=== PATIENT | female | born 1975 | race African-American/Black ===

== ENCOUNTER 2025-01-22 19:13 | Inpatient (IN) | payer OTHER ==
[2025-01-22 20:04] VITALS: BMI 20.9
[2025-01-22] MEDS ORDERED: ONDANSETRON *ODT* 4 MG TABLET SL PRN (20:44)
[2025-01-22] MEDS ORDERED: BENZONATATE 200 MG CAPSULE PO PRN (20:44)
[2025-01-22] MEDS ORDERED: MAGNESIUM HYDROX 2400MG/30ML ORAL SUSPENSION 30 ML CUP PO PRN (20:44)
[2025-01-22] MEDS ORDERED: guaiFENesin 600 MG TABLET.ER (FP) PO PRN (20:44)
[2025-01-22] MEDS ORDERED: BENZOCAINE/MENTHOL (CHLORASEPTIC ) LOZENGE MM PRN (20:44)
[2025-01-22] MEDS ORDERED: BISMUTH SUBSALICYLATE 524 MG/30 ML PO PRN (20:44)
[2025-01-22] MEDS ORDERED: NICOTINE POLACRILEX 2 MG LOZENGE BC PRN (20:44)
[2025-01-22] MEDS ORDERED: POLYETHYLENE GLYCOL (HEALTHYLAX) 3350 17 GM PACKET PO PRN (20:44)
[2025-01-22] MEDS ORDERED: MAG HYDROX/AL HYDROX/SIMETH 30 ML UNIT-DOSE CUP PO PRN (20:44)
[2025-01-22] MEDS ORDERED: hydrOXYzine PAMOATE 25 MG CAPSULE (FP) PO PRN (20:44)
[2025-01-22] MEDS ORDERED: NICOTINE POLACRILEX 2 MG GUM BUC PRN (20:44)
[2025-01-22] MEDS ORDERED: LOPERAMIDE HCL 2 MG CAPSULE PO PRN (20:44)
[2025-01-22] MEDS ORDERED: DICYCLOMINE HCL 10 MG CAPSULE PO PRN (20:44)
[2025-01-22] MEDS ORDERED: NALOXONE (NARCAN) HCL 4 MG/0.1 ML SPRAY NS PRN (20:44)
[2025-01-22] MEDS ORDERED: VITAMINS A AND D TOPICAL OINTMENT TP PRN (20:54)
[2025-01-22] MEDS ORDERED: levETIRAcetam 500 MG TABLET (FP) PO ONE (22:11)
[2025-01-22] MEDS ORDERED: MELATONIN 5 MG TABLETS ONE (22:11)
[2025-01-22] MEDS ORDERED: hydrOXYzine PAMOATE 25 MG CAPSULE (FP) PO ONE (22:11)
[2025-01-22] MEDS ORDERED: IBUPROFEN 400 MG TABLET (FP) PO ONE (22:13)
[2025-01-22] MEDS: IBUPROFEN 400 MG TABLET (FP) PO PRN (22:18)
[2025-01-22] MEDS: THIAMINE 100 MG TABLET PO SCH (23:21)
[2025-01-22] MEDS: levETIRAcetam 500 MG TABLET (FP) PO SCH (23:21)
[2025-01-22] MEDS: MELATONIN 5 MG TABLETS PO SCH (23:21)
[2025-01-23] MEDS: PRENATAL VITAMINS W/ FOLIC ACID TABLET (FP) PO SCH (10:28)
[2025-01-23] MEDS: METHOCARBAMOL 500 MG TABLET PO PRN (10:28)
[2025-01-23 12:32] LABS: MCHC 33.7 g/dl (32.2-35.5); MEAN CELL VOLUME 85.2 fl (79.4-94.8); MEAN PLT VOLUME 10.0 fl (9.4-12.3); RDW 16.9 % (12.2-17.1)
[2025-01-23 12:40] LABS: GLUCOSE,RANDOM 85 mg/dL (74-106); TOT PROT 5.8 g/dl (6.4-8.2)
[2025-01-23 12:41] LABS: CO2 30 mmol/L (21-32)
[2025-01-23 12:43] LABS: ALK PHOS 99 U/L (40-150)
[2025-01-23 12:46] LABS: CREATININE 0.55 mg/dL (0.55-1.3); SGOT/AST 25 U/L (5-34); SGPT/ALT 8 U/L (0-55)
[2025-01-23] MEDS: IBUPROFEN 600 MG TABLET (FP) PO PRN (13:04)
[2025-01-23] MEDS: POTASSIUM CHLORIDE ORAL LIQUID 20 MEQ/15 ML PO ONE ×2 (13:24→19:02)
[2025-01-23] MEDS: diphenhydrAMINE HCL 25 MG CAPSULE (FP) PO ONE (13:53)
[2025-01-23] MEDS: TRIAMCINOLONE ACET 0.5% OINT 15 GM TUBE TP SCH (22:47)
[2025-01-24] MEDS: predniSONE 20 MG TABLET (UD) PO SCH (12:16)
[2025-01-24] MEDS: diphenhydrAMINE HCL 25 MG CAPSULE (FP) PO ONE (12:17)
[2025-01-24] MEDS: SELENIUM SULFIDE 2.25% 180 ML SHAMPOO TP SCH (13:20)
[2025-01-24] MEDS ORDERED: diphenhydrAMINE HCL 25 MG CAPSULE (FP) PO SCH ×2 (22:00)
[2025-01-24] MEDS: diphenhydrAMINE HCL 25 MG CAPSULE (FP) PO PRN (22:31)
[2025-01-24] MEDS: ACETAMINOPHEN 325 MG TABLET (FP) PO PRN (22:54)
[2025-01-25] MEDS ORDERED: diphenhydrAMINE HCL 25 MG CAPSULE (FP) PO PRN (18:44)
[2025-01-25] MEDS: SUVOREXANT 10 MG TABLET PO PRN (22:26)
[2025-01-25] MEDS: ACAMPROSATE CALCIUM 333 MG TABLET.DR PO SCH (22:27)
[2025-01-26 10:21] VITALS: RESP 18
[2025-01-26 13:41] VITALS: BP 118/70; PULSE 99; TEMP 98.6
== END 2025-01-26 13:13 | disposition home or self-care (01) | DRG 775 ==
LOC: YASAS 19:13 → Y6N 22:43
PROVIDERS: ADMIT Neuromusculoskeletal Medicine & OMM; ATTEND Student in an Organized Health Care Education/Training Program
PROC: HZ2ZZZZ Detoxification Services for Substance Abuse Treatment (ICD-10-PCS; principal; 2025-01-22)
DX: F10.230 Alcohol dependence with withdrawal, uncomplicated (principal); F17.210 Nicotine dependence, cigarettes, uncomplicated; F10.282 Alcohol dependence with alcohol-induced sleep disorder; F10.24 Alcohol dependence with alcohol-induced mood disorder; J45.909 Unspecified asthma, uncomplicated; L40.9 Psoriasis, unspecified; Z62.810 Personal history of physical and sexual abuse in childhood; Z91.410 Personal history of adult physical and sexual abuse; Z63.0 Problems in relationship with spouse or partner; Z63.8 Other specified problems related to primary support group
CPT/HCPCS: 36415; 80053; 80307; 82140; 84132; 85027; 86780; 93005; 93010